=== PATIENT | male | born 1955 | race African-American/Black ===

== ENCOUNTER → 2019-03-29 | Outpatient (CLI) | payer MEDICARE ==
[2019-03-29 12:01] LABS: ABSOLUTE BASOPHILS # (AUTO) 0.1 10^3/uL (0.0-0.2); ABSOLUTE EOSINOPHILS # (AUTO) 0.1 10^3/uL (0.0-0.6); ABSOLUTE MONOCYTES (AUTO) 1.1 10^3/uL (0.1-1.4); ABSOLUTE NEUT (AUTO) 6.1 10^3/uL (1.7-8.2); BASOPHILS % (AUTO) 0.6 % (0-2); EOSINOPHILS % (AUTO) 1.1 % (0-6); HEMATOCRIT 37.8 % (37.9-51.0); HEMOGLOBIN 12.7 g/dL (13.5-17.0); MEAN CORPUSCULAR HEMOGLOBIN 31.5 pg (27.0-33.4); MEAN CORPUSCULAR HGB CONC 33.7 g/dL (32.0-36.0); MEAN CORPUSCULAR VOLUME 93 fl (80-97); MONOCYTES % (AUTO) 10.4 % (3-13); PLATELET COUNT 350 10^3/uL (150-450); RED BLOOD COUNT 4.04 10^6/uL (4.35-5.55); RED CELL DISTRIBUTION WIDTH 14.8 % (11.5-14.0); SEGMENTED NEUTROPHILS % (AUTO) 58.9 % (42-78); TOTAL CELLS COUNTED % (AUTO) 100 %; WHITE BLOOD COUNT 10.4 10^3/uL (4.0-10.5)
[2019-03-29 12:23] LABS: ALBUMIN 4.2 g/dL (3.5-5.0); ALKALINE PHOSPHATASE 178 U/L (38-126); ANION GAP 13 (5-19); ASPARTATE AMINO TRANSFERASE 37 U/L (17-59); BILIRUBIN,DIRECT 0.3 mg/dL (0.0-0.4); BILIRUBIN,TOTAL 0.4 mg/dL (0.2-1.3); BLOOD UREA NITROGEN 14 mg/dL (7-20); CALCIUM 10.2 mg/dL (8.4-10.2); CARBON DIOXIDE 26 mmol/L (22-30); CHLORIDE 103 mmol/L (98-107); GLUCOSE 98 mg/dL (75-110); POTASSIUM 4.3 mmol/L (3.6-5.0); TOTAL PROTEIN 10.2 g/dL (6.3-8.2)
--- NOTE | 2019-03-29 12:30 | RADIOLOGY REPORT (SQ) ---
EXAM DESCRIPTION: CT HEAD WITHOUT COMPLETED DATE/TIME: 03/29/2019 12:10 pm REASON FOR STUDY: DIZZINESS (R42) R42 DIZZINESS AND GIDDINESS E78.2 MIXED HYPERLIPIDEMIA COMPARISON: None. TECHNIQUE: Axial images acquired through the brain without intravenous contrast. Images reviewed wi th bone, brain and subdural windows. Additional sagittal and coronal reconstructions were generated. Images stored on PACS. All CT scanners at this facility use dose modulation, iterative reconstruction, and/or weight based d osing when appropriate to reduce radiation dose to as low as reasonably achievable (ALARA). [facility]: Dose Right [facility]: CareDose [facility]: Dose Right [facility]: Teradose 4D [facility]: Imagekind RADIATION DOSE: CT Rad equipment meets quality standard of care and radiation dose reduction techniq ues were employed. CTDIvol: 48.7 mGy. DLP: 979 mGy-cm. mGy. LIMITATIONS: None. FINDINGS: VENTRICLES: Normal size and contour. CEREBRUM: No masses. No hemorrhage. No midline shift. No evidence for acute infarction. Normal gra y/white matter differentiation. No areas of low density in the white matter. CEREBELLUM: No masses. No hemorrhage. No alteration of density. No evidence for acute infarction. EXTRAAXIAL SPACES: No fluid collections. No masses. ORBITS AND GLOBE: No intra- or extraconal masses. Normal contour of globe without masses. CALVARIUM: No fracture. Patient is edentulous with multiple areas cortical lucency involving the max illa, likely odontogenic. PARANASAL SINUSES: Mild polypoid mucosal thickening within the maxillary sinuses. Mastoid air cells and remaining sinuses are clear. SOFT TISSUES: Low-density ovoid lesion within the left pre auricular subcutaneous tissues measuring 1 8 mm. Additional scattered lesions within the dermis and subcutaneous tissues along the bilateral ch eeks measuring up to 11 mm on the right and 18 mm on the low. Skin thickening with scattered areas o f dermal calcification bilaterally. OTHER: No other significant finding. IMPRESSION: 1. No evidence of acute intracranial abnormality. 2. Multiple dermal calcifications with additional low density cystic areas within the dermis and sub cutaneous tissues, largest in the left pre irregular space measuring 18 mm. Findings may sebaceous c yst. Recommend correlation with physical exam. 3. Missing maxillary teeth with cortical irregularity along the maxilla, likely odontogenic. EVIDENCE OF ACUTE STROKE: NO. COMMENT: Quality ID # [id number]: Final reports with documentation of one or more dose reduction techniques (e.g., Automated exposure control, adjustment of the mA and/or kV according to patient size, use of iterative reconstruction technique) TECHNICAL DOCUMENTATION: JOB ID: [id number] [email or web address]- All Rights Reserved Reading location - IP/workstation name: [email or web address]-
== END ==
LOC: RAD 11:28
PROVIDERS: ATTEND Physician Assistant
DX: R42 Dizziness and giddiness (principal); E78.2 Mixed hyperlipidemia
CPT/HCPCS: 36415; 70450; 80053; 83735; 84436; 84443; 85025

== ENCOUNTER 2019-04-06 13:12 | Day surgery (SDC) | payer MEDICARE ==
[2019-04-06 14:22] VITALS: BP 169/77
[2019-04-06 14:30] LABS: INTERNATIONAL RATION (INR) 1.14; PROTHROMBIN TIME 14.7 SEC (11.4-15.4)
[2019-04-06 14:31] LABS: PARTIAL THROMBOPLASTIN TIME 35.9 SEC (23.5-35.8)
[2019-04-06] MEDS ORDERED: PROPOFOL INJ 200 MG/20 ML VIAL IV ONE (14:49)
--- NOTE | 2019-04-06 16:04 | PDOC CONSULTATION ---
Consultation Consult Date: 04/06/19 Attending physician:: RICO THIBODEAUX Provider Consulted: UZAIR RICH Consult reason:: Outpatient AMAN and cardioversion for new onset atrial fibrillation History of Present Illness Admission Date/PCP: RUDY MONTOYA PA-C Patient complains of: Palpitations History of Present Illness: REX GUIDO is a 64 year old male With medical history significant for hypertension who presented to Dr. Thibodeaux's office. He was found to be in atrial fibrillation which is a new diagnosis for him. He was started on systemic anticoagulation with apixaban 5 mg twice daily. He also has systemic hypertension. He presented to my office today. Since this is a new diagnosis for him we decided to proceed with AMAN followed by cardioversion. Patient presents here today for this procedure. He was found to be in normal sinus rhythm on EKG and telemetry. He does not smoke tobacco at the moment. Past Medical History Cardiac Medical History: Reports: Hypertension - on meds Denies: Coronary Artery Disease, Myocardial Infarction Pulmonary Medical History: Denies: Asthma, Bronchitis, Chronic Obstructive Pulmonary Disease (COPD), Pneumonia Neurological Medical History: Denies: Seizures Musculoskeltal Medical History: Reports: Arthritis - gout Hematology: Denies: Anemia Social History Smoking Status: Current Every Day Smoker Family History Parental Family History Reviewed: No - No familial illnesses Children Family History Reviewed: NA Sibling(s) Family History Reviewed.: NA Medication/Allergy Home Medications: Amlodipine Besylate [Norvasc 2.5 mg Tablet] 2.5 mg PO BID 04/05/19 Apixaban [Eliquis 5 mg Tablet] 5 mg PO BID 04/05/19 Diltiazem HCl [Diltiazem 12Hr ER] 30 mg PO TID 04/05/19 Magnesium Oxide [Magnesium] 800 mg PO BID 04/05/19 Allergies/Adverse Reactions: No Known Allergies Allergy (Verified 04/05/19 15:16) Review of Systems Constitutional: ABSENT: as per HPI, anorexia, chills, fatigue, fever(s), heada salvador(s), night sweats, weakness, weight gain, weight loss, other Eyes: PRESENT: as per HPI Nose, Mouth, and Throat: ABSENT: as per HPI, headache(s), mouth pain, sore throat, vertigo, other Cardiovascular: PRESENT: as per HPI, palpitations Respiratory: ABSENT: as per HPI, cough, dyspnea, hemoptysis, sputum, other Gastrointestinal: ABSENT: as per HPI, abdominal pain, bloating, coffee ground emesis, constipation, diarrhea, dysphagia, heartburn, hematemesis, hematochezia, melena, nausea, vomiting, other Genitourinary: ABSENT: as per HPI, difficulty urinating, dysuria, hematuria, nocturia, other Integumentary: ABSENT: as per HPI, diaphoresis, erythema, lesions, pruritus, rash, wounds, other Neurological: ABSENT: as per HPI, abnormal gait, abnormal movements, abnormal speech, confusion, convulsions, dizziness, focal weakness, frequent falls, lack of coordination, memory loss, numbness, paresthesias, restless legs, syncope, tingling, tremor(s), vertigo, weakness, other Psychiatric: ABSENT: as per HPI, anxiety, depression, hallucinations, homidical ideation, suicidal ideation, other Endocrine: ABSENT: as per HPI, cold intolerance, flushing, heat intolerance, menstrual abnormalities, polydipsia, polyphagia, polyuria, other Physical Exam Vital Signs: Temp Pulse Resp BP Pulse Ox 98.2 F 87 16 169/77 H 98 04/06/19 13:45 04/06/19 13:45 04/06/19 13:45 04/06/19 13:45 04/06/19 13:45 Intake & Output 04/05/19 04/06/19 04/07/19 06:59 06:59 06:59 Intake Total 0 Balance 0 Weight 72.57 kg 72.57 kg General appearance: PRESENT: no acute distress Head exam: PRESENT: atraumatic, normocephalic Eye exam: PRESENT: EOMI Ear exam: PRESENT: other - Parotid swelling left Mouth exam: PRESENT: moist Respiratory exam: PRESENT: symmetrical, unlabored Cardiovascular exam: PRESENT: RRR, +S1, +S2 Pulses: PRESENT: normal radial pulses GI/Abdominal exam: PRESENT: soft Rectal exam: PRESENT: deferred Musculoskeletal exam: PRESENT: normal inspection Neurological exam: PRESENT: alert, awake, oriented to person, oriented to place, oriented to time, oriented to situation Psychiatric exam: PRESENT: appropriate affect Skin exam: PRESENT: dry, intact, normal color Results EKG Comments: Twelve-lead EKG 04/06/2019. 1456. Done in the hospital. Independently reviewed by me. Sinus rhythm, 75 bpm, QTC 465 ms. Telemetry shows sinus rhythm at 82 bpm occasional PVC. Assessment & Plan - Diagnosis (1) Atrial fibrillation Qualifiers: Atrial fibrillation type: paroxysmal Qualified Code(s): I48.0 - Paroxysmal atrial fibrillation Is this a current diagnosis for this admission?: Yes Plan: New onset atrial fibrillation. Risk factors for stroke include systemic hypertension. Patient was initiated on systemic anticoagulation with apixaban 5 mg twice daily Patient was also started on oral diltiazem for rate control. Based on the discussion we had in the office today we decided to proceed with AMAN followed by cardioversion. AMAN was necessary because duration of systemic anticoagulation has been only a couple of weeks. However patient upon presentation in the hospital is found to be in sinus rhythm. Thus no rhythm orthodox is planned today. AMAN and cardioversion have both been canceled Patient was asked to continue his present medications Follow-up in the office will be arranged. Family member was informed regarding this. Patient understands and will follow- up. - Notes Notes: Cancel AMAN as well as cardioversion as patient presents in sinus rhythm today. Outpatient follow-up will be arranged.
--- NOTE | 2019-04-06 19:38 | EKG REPORT ---
SEVERITY:- NORMAL ECG - SINUS RHYTHM : Confirmed by: Shelley Blue MD 06-Apr-2019 19:36:33
== END 2019-04-06 15:45 | disposition home or self-care (01) ==
LOC: OROUT 13:12
PROVIDERS: ATTEND Internal Medicine
DX: I48.91 Unspecified atrial fibrillation (principal); Z79.01 Long term (current) use of anticoagulants; I10 Essential (primary) hypertension; Z79.899 Other long term (current) drug therapy; F17.210 Nicotine dependence, cigarettes, uncomplicated; Z53.9 Procedure and treatment not carried out, unspecified reason
CPT/HCPCS: 36415; 85610; 85730; 93005; 93010; J2704